=== PATIENT | male | born 1945 | race Caucasian/White ===

== ENCOUNTER 2023-08-17 12:13 | Emergency (ER) | payer OTHER ==
[~2023-08-17] VITALS: Ht 170.2 cm; Wt 90.3 kg
[2023-08-17 12:13] VITALS: BP_SYST 135; PULSE 66; RESP 18; TEMP 98.4; O2SAT 96
[2023-08-17] MEDS ORDERED: RIVA20TA PO (13:12)
[2023-08-17 13:25] VITALS: BP_SYST 131; PULSE 70; RESP 18; TEMP 98.4; O2SAT 98
== END 2023-08-17 13:25 | disposition home or self-care (01) ==
LOC: SED 12:13
DX: I82.462 Acute embolism and thrombosis of left calf muscular vein (principal); Z76.0 Encounter for issue of repeat prescription; Z88.1 Allergy status to other antibiotic agents; Z79.899 Other long term (current) drug therapy
CPT/HCPCS: 99281